=== PATIENT | female | born 1990 | race African-American/Black ===

== ENCOUNTER 2016-10-04 20:52 | Emergency (ER) | payer OTHER ==
[~2016-10-04] VITALS: Ht 170.2 cm; Wt 119.9 kg
[~2016-10-04 20:52] MED LIST: AMOXICILLIN875 MG PO; AUGMENTIN500 MG PO; HYCODAN SYRUP480 ML PO; KEFLEX500 MG PO; MAGIC MOUTHWASH1 ML MM; MOTRIN600 MG PO; MOTRIN800 MG PO; NORCO 5/3251 TABLET PO; PREDNISONE10 M1 PO; TOPIRAMATE25 MG PO; ULTRAM50 MG PO; ZOFRAN4 MG PO
[2016-10-04 21:25] LABS: HEMATOCRIT 39.4 % (36.0-46.0); MCH 27.8 PG (29.0-34.0); MEAN PLAT.VOLUME 10.1 uM^3 (9.5-12.4); PLATELET COUNT 266 K/uL (156-360); RBC DIS.WIDTH-CV 14.5 % (11.8-14.6); RBC DIS.WIDTH-SD 45.6 % (39-53); RED BLOOD COUNT 4.53 M/uL (3.80-5.20); WHITE BLOOD COUNT 13.8 K/uL (4.1-10.2)
[2016-10-04 21:33] LABS: CHLORIDE 107 mEq/L (99-109)
[2016-10-04 21:34] LABS: SODIUM 139 mEq/L (136-147)
[2016-10-04 21:35] LABS: GLUCOSE 100 mg/dL (70-99)
[2016-10-04 21:37] LABS: ANION GAP 9 MEQ/L (2-14)
[2016-10-04 21:39] LABS: GFR ESTIMATE (CALCULATED) > 59 mL/min/
[2016-10-04 21:40] LABS: UREA NITROGEN (BUN) 15 mg/dL (9-23)
[2016-10-04 21:45] LABS: TROP-I INTERPRETATION NEGATIVE; TROPONIN-I < 0.01 ng/mL (0.0-0.30)
[2016-10-05] MEDS ORDERED: ATARAX,VISTARIL25 MG PO (00:04)
[2016-10-05] MEDS ORDERED: LO-DOSE ASPIRIN81 M2 PO (00:04)
[2016-10-05 00:19] VITALS: BP 109/55
== END 2016-10-05 00:20 | disposition home or self-care (01) ==
LOC: EME 20:52
DX: R07.9 Chest pain, unspecified (principal); F17.200 Nicotine dependence, unspecified, uncomplicated
CPT/HCPCS: 71020; 80048; 84443; 84484; 85027; 93005; 99281; 99284